=== PATIENT | female | born 1960 | race Caucasian/White ===

== ENCOUNTER 2017-02-16 12:52 | Inpatient (IN) ==
[2017-02-16] MEDS ORDERED: NALOXONE 0.4 MG/ML VIAL ONE (12:57)
[2017-02-16] MEDS ORDERED: FLUMAZENIL 0.5 MG/5 ML VIAL IV ONE (12:57)
[2017-02-16] MEDS ORDERED: NALOXONE 0.4 MG/ML VIAL IV STA (13:06)
[2017-02-16] MEDS ORDERED: FLUMAZENIL 1 MG/10 ML VIAL IV ONE (13:07)
--- NOTE | 2017-02-16 13:09 | Emergency Department Note ---
Arrival - Arrival Chief Complaint: Overdose ED Nursing Triage Note: pt got 60 methodone pills filled on 02/13/17 and today only has 21 left. pt was normal one hour lpta per son. Mode of Arrival: Stretcher Limitations: Altered Mental Status Source: EMS Time Seen by Provider: 02/16/17 13:02 - History of Present Illness HPI Narrative: This 56-year-old white female presents being found by the family with shallow respirations and poorly responsive. EMS arrived and gave the patient 2 Amps of Narcan with significant improvement in respiration although she is still quite stuporous. The patient does take methadone on a regular basis and could have taken as many as 30 [40 mg] methadone tablets by bottle count in the last 72 hrs. Currently she is responsive to noxious stimuli. No other history is available. She does have a prior history of overdosage. Onset (ago): hour(s) (Patient presents approximate 1 hour post onset of symptoms ) Allergies/Adverse Reactions: Allergies Allergy/AdvReac Type Severity Reaction Status Date / Time ketorolac [From Toradol] Allergy RASH Verified 11/13/15 21:28 morphine Allergy Vomiting Verified 09/27/16 04:10 Sulfa (Sulfonamide Allergy RASH Verified 11/13/15 21:28 Antibiotics) Home Medications: Home Medications Medication Instructions Recorded Confirmed Type Citalopram [CeleXA] 40 mg PO BEDTIME #30 tablet 11/13/15 12/07/16 Rx amLODIPine [Norvasc] 10 mg PO DAILY 11/13/15 12/07/16 History metFORMIN [Glucophage] 500 mg PO BID W/MEALS 11/13/15 12/07/16 History Atorvastatin [Lipitor] 10 mg PO DAILY 05/31/16 12/07/16 History HYDROcodone/ACETAMIN 7.5-325 1 tablet PO Q6H #14 tablet 09/27/16 12/07/16 Rx [[place] 7.5-325] Omeprazole [Prilosec] 20 mg PO BID #60 capsule 09/27/16 12/07/16 Rx Ondansetron Odt Tab [Zofran Odt] 4 mg PO Q6H #15 tablet 09/27/16 12/07/16 Rx HydrOXYzine PAMOATE CAP [Vistaril 50 mg PO Q4H PRN 10/06/16 12/07/16 History Cap] QUEtiapine [SEROquel] 100 mg PO BID 10/06/16 12/07/16 History Review of System - Review of System ROS unobtainable: due to mental status Medical,Surgical,& Family Hx - Medical History Cardio: History of: Hypertension Psychological: History of: Anxiety Disorders, Bipolar Disorder, Depression, Psychiatric/Substance Abuse Tx Neurology: History of: Neurological Problems (chronic pain) Endocrine: History of: Diabetes Mellitus (NIDDM) Genitourinary: No history of: Bladder Problem, Kidney Stones Gastrointestinal: History of: GERD Musculoskeletal: History of: Degenerative Disk Disease, Musculoskeletal Problems (MUTLIPLE SCLEROSIS) Hematology: No history of: Blood Transfusion Reaction Other: No history of: Anesthesia Reactions, Cancer - Surgical History Cardiac Surgeries: Patient Denies: Cardiac Catheterization HEENT Surgeries: Surgical HX of: Tonsilectomy & Adenoidectomy Abdominal Surgeries: Surgical HX of: Appendectomy, Cholecystectomy, Colonoscopy , EGD Reproductive Surgeries: Surgical HX of;: Hysterectomy Orthopedic Surgeries: Patient denies;: Orthopedic Surgery - Family History Family History: Reports;: Family Diabetes, Family Heart Disease, Family Hypertension - Social History Smoking Status: Current every day smoker Frequency of Alcohol Use: Unknown Type of Drug Use: Unknown Exam Physical Examination: GENERAL: Stuporous obese white female. HEENT: Normocephalic. No trauma. Moist mucous membranes. EOMI. PERRLA. ENT NML NECK: Supple. No adenopathy. No JVD CARDIAC: Regular. No murmurs. Heart rate 120 CHEST: Clear to auscultation. No respiratory distress. O2 sat 94% ABDOMEN: Soft. Nontender. Active bowel sounds. EXTREMITIES: No trauma. Normal ROM. No pedal edema. SKIN: No diaphoresis. No rash. NEURO: Stuporous but responds with movement of all 4 extremities to noxious stimuli Vital Signs: Vital Signs Temperature 97.0 F L 02/16/17 13:01 Pulse Rate 86 02/16/17 13:01 Respiratory Rate 26 H 02/16/17 14:09 Blood Pressure 128/76 02/16/17 13:01 O2 Sat by Pulse Oximetry 95 02/16/17 13:01 Course Course Narrative: My urine toxicology no evidence of opiate overdose but instead crystal meth. As related to us by the , the missing pills of methadone were on the floor where they still are when she spilled the bottle earlier in the day. Because of progressive hypoxia and diminished respiratory drive the patient was intubated and given ventilatory support. - Reevaluation(s) Reevaluation #1: Discussed with the obvious need for hospitalization given her situation clinically - Consultations Consultation #1: Discussed with the hospitalist service who will admit for further evaluation treatment. Procedures - Intubation sedative: Etomidate Mg Given: 30 paralytic: Succinylcholine Mg Given: 100 Laryngoscope: Fang Assist Device Used: fiber optic device ET Tube Size: 7.5 ET Tube Uncuffed: No Tube Secured Depth (cm): 21 Tube Secured Location: lips Tube Placement Confirmation: visualized tube passing through cords, equal breath sounds bilaterally, confirmation detector color change Patient Tolerated Procedure: well Intubation Complications: none Results - Labs CBC & BMP: 02/16/17 13:18 02/16/17 13:18 Labs: I reviewed the laboratory and noted the grossly normal serologies however likewise noted was the absence of opiates on toxicology but the presence of crystal meth. - Impressions EKG: Sinus rhythm with normal ME interval and prolonged QT interval. Nonspecific ST changes. No acute injury pattern noted. - Diagnostic Findings Procedure: Chest x-ray: image reviewed by me, report reviewed by me (Chest clear with ET tube in good position.), CT: image reviewed by me, report reviewed by me (Head: No acute changes.) Disposition Clinical Impression: Methamphetamine overdose, Respiratory failure Case discussed with: patient's family Disposition: Still a Patient Condition: Guarded Time of Disposition: 14:28
[2017-02-16] MEDS ORDERED: ALBUTEROL NEB SOLN 5 MG/ML 20 ML/BOTTLE CONT NEB STA (13:12)
[2017-02-16] MEDS ORDERED: PROPOFOL 1,000 MG/100 ML BOTTLE IV ONE ×2 (13:21→17:03)
[2017-02-16] MEDS ORDERED: ETOMIDATE 20 MG/10 ML VIAL IV ONE (13:22)
[2017-02-16] MEDS ORDERED: SUCCINYLCHOLINE 200 MG/10 ML VIAL ONE (13:22)
[2017-02-16 13:31] LABS: Basophils % 0.3 % (0.0-0.8); Eosinophils # 0.1 10*3/uL (0.0-0.87); Eosinophils % 1.1 % (0.00-10.9); Hematocrit 35.3 VOL% (35.7-47.0); Hemoglobin 11.3 GM/DL (12.0-16.0); Immature Granulocytes Absolute 0.11 #; Lymphocytes # 2.6 10*3/uL (1.4-4.0); Lymphocytes % 22.5 % (21.3-54.2); Mean Corpuscular Hemoglobin 32 PG (27-34); Mean Corpuscular Volume 100.6 FL (87-102); Mean Platelet Volume 10.1 FL (9.6-12.0); Monocytes # 1.3 10*3/uL (0.11-0.8); Monocytes % 11.7 % (1.7-12.7); Neutrophils # 7.2 10*3/uL (1.4-7.4); Neutrophils % 63.4 % (38.7-73.9); Platelet Count 169 T/CUMM (130-400); Red Blood Count 3.51 MC/CUMM (3.8-5.5); Red Cell Distribution Width 13.1 % (9.3-17.3); White Blood Count 11.3 T/CUMM (4-12)
[2017-02-16 13:36] LABS: Apearance,Urine Slightly Hazy (Clear); Bacteria,Urine Occasional /HPF (Few); Bilirubin,Urine Negative (Negative); Blood, Urine Negative (Negative); Glucose,Urine (UA) Negative (Negative); Hyaline Casts,Urine 17 /LPF (0-3); Ketones,Urine Negative (Negative); Mucus,Urine Occasional /LPF (Occasional); Nitrite,Urine Negative (Negative); Protein,Urine 30 MG/DL; RBC,Urine <1 /HPF (0-4); Squamous Epithelial Cell,Urine Occasional /HPF (0-10); Urine Color Yellow (Yellow); Urine Specific Gravity 1.008 (1.001-1.035); Urine Urobilinogen < 2.0 EU/DL (0.2-1.0); WBC,Urine 2 /HPF (0-6)
[2017-02-16 13:39] LABS: INR 1.1; PT Patient Result 11.5 SECS; Partial Thromboplastin Time 23.1 SECS (0-40)
[2017-02-16 13:44] LABS: Barbiturates Screen,Urine Negative (Negative); Benzodiazepines Screen,Urine Negative (Negative); Cannabinoid Screen,Urine Negative (Negative); Opiate Screen,Urine Negative (Negative); Phencyclidine Screen,Urine Negative (Negative)
[2017-02-16 13:48] LABS: Ammonia 29 UMOL/L (11-32)
[2017-02-16 13:53] LABS: Alanine Aminotransferase 58 U/L (13-56); Albumin 3.5 G/DL (3.4-5.0); Alkaline Phosphatase 52 U/L (45-117); Aspartate Amino Transferase 138 U/L (0-37); Blood Urea Nitrogen 21 MG/DL (7-18); Calcium 8.3 MG/DL (8.5-10.1); Glucose 186 MG/DL (74-106); Osmolality,Calculated 286.4 MOS/KG (273-304); Sodium 140 MMOL/L (136-145); Total Protein 6.8 G/DL (6.4-8.3)
[2017-02-16] MEDS ORDERED: MIDAZOLAM 10 MG/2 ML VIAL ONE (13:57)
[2017-02-16] MEDS ORDERED: SUCCINYLCHOLINE 200 MG/10 ML VIAL IV STA (14:00)
[2017-02-16] MEDS ORDERED: ETOMIDATE 20 MG/10 ML VIAL IV STA (14:00)
[2017-02-16] MEDS ORDERED: MIDAZOLAM 10 MG/2 ML VIAL IV STA (14:01)
[2017-02-16] MEDS ORDERED: SODIUM CHLORIDE 0.9% 1,000 ML IV STA ×2 (14:01→14:22)
--- NOTE | 2017-02-16 14:01 | CT Report ---
Referring physician: Bethel Luke Exam: CT brain without contrast Date: 02/16/2017 Comparison: None Reason: Alteration of consciousness Technique: Axial images of the head were obtained without the use of contrast. Total DLP was 1081.1 mGy*cm. Findings: No hydrocephalus or midline shift is present. There is no evidence of an acute infarction, recent intracranial hemorrhage or abnormal mass effect. The osseous structures appear intact. The mastoid air cells and visualized paranasal sinuses are clear. Impression: No acute intracranial abnormality is identified. The CT exam was performed using one or more of the following dose reduction techniques: Automated exposure control and adjustment of the mA and/or kV according to patient size. PROCEDURE INTERPRETED AT [facility] DEPARTMENT OF RADIOLOGY Final Report Signed by: Dr. Yany Castrejon
--- NOTE | 2017-02-16 14:02 | XRay Report ---
Portable chest Date: 02/16/2017 Clinical history: Alteration of consciousness Comparison: 10/11/2016 Technique: Portable AP sitting chest Findings: The heart is borderline in size. The endotracheal tube projects with the tip just above the level of the clavicles. Nasogastric tube seen entering the stomach. Minimal atelectasis at the lung bases. Stable mediastinum with degenerative changes. Impression: The endotracheal tube and nasogastric tube are in satisfactory position. Minimal atelectasis at the lung bases. PROCEDURE INTERPRETED AT [facility] DEPARTMENT OF RADIOLOGY Final Report Signed by: Dr. Yany Castrejon
[2017-02-16 14:15] LABS: ABG HCO3 20.3 MMOL/L (20-26); ABG Oxygen Saturation 96.8 % (95-100); ABG PCO2 58.3 MM HG (35-48); ABG PH 7.216 (7.35-7.45); ABG TCO2 21.8 MMOL/L (23-27); Allen Test Positive; Pt O2 Delivery Device Ventilator
--- NOTE | 2017-02-16 14:15 | EKG Report ---
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
[2017-02-16] MEDS: PROPOFOL 1,000 MG/100 ML BOTTLE IV SCH ×2 (14:17→23:31)
[2017-02-16] MEDS ORDERED: PROPOFOL 1,000 MG/100 ML BOTTLE IV SCH (14:30)
[2017-02-16] MEDS ORDERED: ONDANSETRON 4 MG/2 ML VIAL IV PRN (14:47)
[2017-02-16] MEDS ORDERED: PROMETHAZINE 25 MG TABLET PO PRN (14:47)
[2017-02-16] MEDS ORDERED: PANTOPRAZOLE 40 MG TABLET PO SCH (15:00)
--- NOTE | 2017-02-16 15:15 | Hospitalist History & Physical ---
Assessment and Plan - Time spent with patient Time spent with patient: Less than 30 minutes (1) Overdose, drug Status: Acute Assessment and plan: 56-year-old white female now sedated on the vent due to methamphetamine drug overdose. We will be holding all of her medicines and support her until she wakes up. She will be given IV fluids and will have an NG tube to low wall suction. Garcia has been placed for I&O. Anxiety and depression--we will hold all of her medicines for now. And as she awakens we will add these back. Dr. Segundo is her pain doctor so he may end up being consulted at some point. Hypertension--we are holding her medicines for right now. We will restart these when blood pressure start to rise. Have discussed all these findings with Dr. Marquez. Further recommendations to follow Current Visit: Yes (2) Hypertension Status: Acute Current Visit: Yes (3) Anxiety and depression Status: Acute Current Visit: Yes History of Present Illness Chief complaint: Overdose History of present illness: 56-year-old white female with history of hypertension, chronic pain on methadone , depression and anxiety brought into the ED by ambulance unresponsive. She is sedated on the vent. Patient's is in the room and he states her son found her down lying on the couch not breathing and unresponsive. Her son started CPR and called an ambulance. Her works in [place] and he drove up here soon as he got the call from his son. states she is a pain patient of Dr. Segundo and she sees Dr. Ernesto Clarke as her primary care doctor. He states they started her on methadone about a month ago and he feels like she has not been the same since then. He states she has been lethargic and kind of out of it and depressed. He last spoke with her on Sunday and she seemed to be getting worse. Her drug screen is showing positive for methamphetamines and the states that she has not taken those in a really long time. Hospitalist has been asked to admit patient. Home Medications Medication Instructions Recorded Confirmed Type Citalopram [CeleXA] 40 mg PO BEDTIME #30 tablet 11/13/15 12/07/16 Rx amLODIPine [Norvasc] 10 mg PO DAILY 11/13/15 12/07/16 History metFORMIN [Glucophage] 500 mg PO BID W/MEALS 11/13/15 12/07/16 History Atorvastatin [Lipitor] 10 mg PO DAILY 05/31/16 12/07/16 History HYDROcodone/ACETAMIN 7.5-325 1 tablet PO Q6H #14 tablet 09/27/16 12/07/16 Rx [[place] 7.5-325] Omeprazole [Prilosec] 20 mg PO BID #60 capsule 09/27/16 12/07/16 Rx Ondansetron Odt Tab [Zofran Odt] 4 mg PO Q6H #15 tablet 09/27/16 12/07/16 Rx HydrOXYzine PAMOATE CAP [Vistaril 50 mg PO Q4H PRN 10/06/16 12/07/16 History Cap] QUEtiapine [SEROquel] 100 mg PO BID 10/06/16 12/07/16 History Allergies Allergy/AdvReac Type Severity Reaction Status Date / Time ketorolac [From Toradol] Allergy RASH Verified 11/13/15 21:28 morphine Allergy Vomiting Verified 09/27/16 04:10 Sulfa (Sulfonamide Allergy RASH Verified 11/13/15 21:28 Antibiotics) Medical,Surgical,& Family Hx - Medical History Cardio: History of: Hypertension Psychological: History of: Anxiety Disorders, Bipolar Disorder, Depression, Psychiatric/Substance Abuse Tx Neurology: History of: Neurological Problems (chronic pain) Endocrine: History of: Diabetes Mellitus (NIDDM) Genitourinary: No history of: Bladder Problem, Kidney Stones Gastrointestinal: History of: GERD Musculoskeletal: History of: Degenerative Disk Disease, Musculoskeletal Problems (MUTLIPLE SCLEROSIS) Hematology: No history of: Blood Transfusion Reaction Other: No history of: Anesthesia Reactions, Cancer - Surgical History Cardiac Surgeries: Patient Denies: Cardiac Catheterization HEENT Surgeries: Surgical HX of: Tonsilectomy & Adenoidectomy Abdominal Surgeries: Surgical HX of: Appendectomy, Cholecystectomy, Colonoscopy , EGD Reproductive Surgeries: Surgical HX of;: Hysterectomy Orthopedic Surgeries: Patient denies;: Orthopedic Surgery - Family History Family History: Reports;: Family Diabetes, Family Heart Disease, Family Hypertension - Social History Smoking Status: Current every day smoker Frequency of Alcohol Use: Unknown Type of Drug Use: Unknown ROS unobtainable: due to endotracheal tube Exam - Constitutional Vitals: Period Temp Pulse Resp BP Sys/Aguilar Pulse Ox Last 24 Hr 97.0 F-97.0 F 86-86 26-26 128-128/76-76 95 Exam: 56-year-old white female, sedated on the vent is present Constitutional System: No distress. No tremulousness. Head: Normocephalic, atraumatic. Ears, Nose and Throat System: No evidence of Otitis or Mastoiditis. No epistaxis or discharge Eyes System: Pupils equal, round, and reactive. Extraocular muscles intact. Neck: Supple, without adenopathy, No jugular venous distention. No thyromegaly, neck mass, or prior surgery apparent. Respiratory System: Chest clear to auscultation. Cardiovascular System: Heart with regular rate and rhythm. No murmur. GI System: Abdomen soft,. Normo active bowel sounds present. Musculoskeletal System: limbs with no pedal edema. Full distal pulses. Neurological System: No discernable sensory deficit. No aphasia Psychiatric System: Conversation is rational Results - Labs CBC & BMP: 02/16/17 13:18 02/16/17 13:18 Lab Results: I have reviewed the past 24 hour labs - EKG EKG results: sinus rhythm - Diagnostic Findings Procedure: Chest x-ray: report reviewed by me (ET tube and NG tube in place), CT : report reviewed by me (CT the head negative)
[2017-02-16] MEDS ORDERED: GLUCAGON 1 MG VIAL IM PRN (17:32)
[2017-02-16] MEDS: SODIUM CHLORIDE 0.9% 1,000 ML IV SCH (18:13)
[2017-02-16] MEDS: ENOXAPARIN 40 MG/0.4 ML SYRINGE SUBCUT SCH (18:19)
[2017-02-16] MEDS: FAMOTIDINE 20 MG/2 ML VIAL IV SCH (18:19)
[2017-02-16] MEDS: INSULIN LISPRO 100 UNIT/ML SUBCUT SCH (18:32)
[2017-02-16 20:36] LABS: ABG Base Excess -4.2 MMOL/L (-2.5-2.5); ABG HCO3 20.9 MMOL/L (20-26); ABG Oxygen Saturation 96.8 % (95-100); ABG PCO2 47.6 MM HG (35-48); ABG PH 7.286 (7.35-7.45); ABG PO2 88.9 MM HG (80-95); ABG TCO2 20.8 MMOL/L (23-27); Allen Test Positive; Pt O2 Delivery Device Ventilator
[2017-02-17] MEDS: SODIUM CHLORIDE 0.9% 1,000 ML IV SCH ×4 (00:01→16:25)
[2017-02-17] MEDS: INSULIN LISPRO 100 UNIT/ML SUBCUT SCH ×4 (01:32→17:51)
[2017-02-17] MEDS: DEXTROSE 50% 25 GM/50 ML VIAL IV PRN ×2 (02:18→05:49)
[2017-02-17 03:44] LABS: Allen Test Positive; Pt O2 Delivery Device Ventilator
[2017-02-17 03:45] LABS: ABG Base Excess -1.5 MMOL/L (-2.5-2.5); ABG HCO3 22.1 MMOL/L (20-26); ABG Oxygen Saturation 98.5 % (95-100); ABG PCO2 33.5 MM HG (35-48); ABG PH 7.437 (7.35-7.45); ABG PO2 153.2 MM HG (80-95); ABG TCO2 23.1 MMOL/L (23-27)
[2017-02-17] MEDS: PROPOFOL 1,000 MG/100 ML BOTTLE IV SCH ×3 (04:31→17:50)
[2017-02-17 05:33] LABS: Albumin 2.8 G/DL (3.4-5.0); Bilirubin,Total 0.9 MG/DL (0.2-1.0); Calcium 7.6 MG/DL (8.5-10.1); Magnesium 1.8 MG/DL (1.8-2.4); Potassium 3.6 MMOL/L (3.5-5.1); Total Protein 6.2 G/DL (6.4-8.3)
[2017-02-17] MEDS: PHENYLEPHRINE DRIP 40 MG/250 ML PREMIX IV SCH (05:45)
[2017-02-17] MEDS: FAMOTIDINE 20 MG/2 ML VIAL IV SCH ×2 (05:52→17:53)
[2017-02-17 06:40] LABS: Basophils % 0.3 % (0.0-0.8); Eosinophils # 0.1 10*3/uL (0.0-0.87); Eosinophils % 1.9 % (0.00-10.9); Hematocrit 31.3 VOL% (35.7-47.0); Hemoglobin 10.6 GM/DL (12.0-16.0); Immature Granulocytes % 0.6 %; Immature Granulocytes Absolute 0.04 #; Lymphocytes # 2.8 10*3/uL (1.4-4.0); Lymphocytes % 38.6 % (21.3-54.2); Mean Corpuscular HGB Conc 33.9 GM/DL (32-36); Mean Corpuscular Hemoglobin 33 PG (27-34); Mean Platelet Volume 10.2 FL (9.6-12.0); Monocytes # 0.8 10*3/uL (0.11-0.8); Monocytes % 11.2 % (1.7-12.7); Neutrophils # 3.4 10*3/uL (1.4-7.4); Neutrophils % 47.4 % (38.7-73.9); Platelet Count 155 T/CUMM (130-400); Red Blood Count 3.26 MC/CUMM (3.8-5.5); White Blood Count 7.2 T/CUMM (4-12)
[2017-02-17] MEDS ORDERED: GLUCAGON 1 MG VIAL IM PRN (07:54)
[2017-02-17] MEDS ORDERED: DEXTROSE 50% 25 GM/50 ML VIAL IV PRN (07:54)
--- NOTE | 2017-02-17 07:59 | Hospitalist Progress Note ---
Assessment and Plan (1) Acute metabolic encephalopathy Status: Acute Assessment and plan: The patient is admitted to the hospital with polypharmacy. The patient is toxic metabolic encephalopathy due to medications. The patient has been stabilized in the intensive care unit we will continue mechanical ventilation. We will repeat today. I am going to restart Seroquel today. We will put on Duragesic patch to reduce the effects of narcotic withdrawal. Dr. Segundo will see the patient. Current Visit: Yes (2) Respiratory failure with hypoxia and hypercapnia Status: Acute Current Visit: Yes Qualifiers: Chronicity: acute Qualified Code(s): J96.01 - Acute respiratory failure with hypoxia; J96.02 - Acute respiratory failure with hypercapnia (3) Overdose, drug Status: Acute Current Visit: Yes Qualifiers: Encounter type: initial encounter Injury intent: accidental or unintentional Qualified Code(s): T50.901A - Poisoning by unspecified drugs, medicaments and biological substances, accidental (unintentional), initial encounter (4) Hypertension Status: Acute Current Visit: Yes (5) Anxiety and depression Status: Acute Current Visit: Yes Hospitalist: Subjective Interval history: The patient is sedated and mechanically ventilated. Hemodynamics are stable and the patient is making urine. I am going to add Duragesic patch today to reduce the risk of narcotic withdrawal. I am going to start the patient on tube feedings. Exam - Constitutional Vitals: Period Temp Pulse Resp BP Sys/Aguilar Pulse Ox Last 24 Hr 97.0 F-99.0 F 65-75 14-18 75-159/40-101 95-100 Exam: Constitutional System: No distress. No tremulousness. The patient is orally intubated and mechanically ventilated. She is sedated with Diprivan Head: Normocephalic, atraumatic. Ears, Nose and Throat System: No evidence of Otitis or Mastoiditis. No epistaxis or discharge Eyes System: Pupils equal, round, and reactive. Extraocular muscles intact. Neck: Supple, without adenopathy, No jugular venous distention. No thyromegaly , neck mass, or prior surgery apparent. Respiratory System: Chest clear to auscultation. Cardiovascular System: Heart with regular rate and rhythm. No murmur. GI System: Abdomen soft, nontender. Normo active bowel sounds present. Musculoskeletal System: limbs with no pedal edema. Full distal pulses. Results - Labs CBC & BMP: 02/17/17 06:33 02/17/17 04:29 Lab Results: I have reviewed the past 24 hour labs
[2017-02-17] MEDS: QUEtiapine 100 MG TABLET PER TUBE SCH ×2 (09:04→22:37)
[2017-02-17] MEDS: LEVOFLOXACIN INJ 500 MG in PREMIX 1 EACH IV SCH (09:04)
[2017-02-17] MEDS: fentaNYL 50 MCG/HR PATCH TRANSDERM SCH (09:14)
--- NOTE | 2017-02-17 10:29 | XRay Report ---
Portable chest. Indication: Shortness of breath. Comparison: February 16, 2017. The heart is borderline enlarged. The film was obtained in expiration. Endotracheal tube and nasogastric tube are in satisfactory position. The pulmonary vasculature is normal. Atelectasis, mild in severity, has developed at the left lung base. The osseous structures are stable. Impression: Expiratory chest. Development of mild left basilar atelectasis. PROCEDURE INTERPRETED AT [facility] DEPARTMENT OF RADIOLOGY Final Report Signed by: Dr. Mindy Moulton
[2017-02-17] MEDS: HYDROmorphone 2 MG/1 ML VIAL IV PRN (14:06)
[2017-02-17] MEDS: ALBUTEROL/IPRATROPIUM 3 ML NEB RESP TX SCH ×2 (14:18→19:28)
--- NOTE | 2017-02-17 15:14 | Pain Management Consult Note ---
Assessment and Plan (1) Overdose, drug Status: Acute Assessment and plan: I agree with the using the Duragesic patch to prevent opioid withdrawal. We should try to slowly wean off the ventilator as tolerated. I will follow along with you and look out for any signs of opiate withdrawal. Current Visit: Yes Qualifiers: Encounter type: initial encounter Injury intent: accidental or unintentional Qualified Code(s): T50.901A - Poisoning by unspecified drugs, medicaments and biological substances, accidental (unintentional), initial encounter History of Present Illness Chief complaint: respiratory failure History of present illness: Ms. Roberson is a 56 year old female Patient admitted with change in mental status and respiratory failure after reportedly methamphetamine and methadone overdose. Patient is responding to noxious stimuli and is sedated on propofol. Patient is not following commands at this time. I agree with the placement of the Duragesic patch 50 g an hour to prevent any opiate withdrawal Home Medications Medication Instructions Recorded Confirmed Type Citalopram [CeleXA] 40 mg PO BEDTIME #30 tablet 11/13/15 02/17/17 Rx amLODIPine [Norvasc] 10 mg PO DAILY 11/13/15 02/17/17 History metFORMIN [Glucophage] 500 mg PO BID W/MEALS 11/13/15 02/17/17 History Atorvastatin [Lipitor] 10 mg PO DAILY 05/31/16 02/17/17 History HYDROcodone/ACETAMIN 7.5-325 1 tablet PO Q6H #14 tablet 09/27/16 02/17/17 Rx [[place] 7.5-325] Omeprazole [Prilosec] 20 mg PO BID #60 capsule 09/27/16 02/17/17 Rx Ondansetron Odt Tab [Zofran Odt] 4 mg PO Q6H #15 tablet 09/27/16 02/17/17 Rx HydrOXYzine PAMOATE CAP [Vistaril 50 mg PO Q4H PRN 10/06/16 02/17/17 History Cap] QUEtiapine [SEROquel] 200 mg PO BID 10/06/16 02/17/17 History Lisinopril 5 mg PO BEDTIME 02/16/17 02/17/17 History Methadone [(None)] 10 mg PO Q12HR 02/16/17 02/17/17 History Tizanidine HCl [Zanaflex] 4 mg PO BEDTIME 02/16/17 02/17/17 History Allergies Allergy/AdvReac Type Severity Reaction Status Date / Time ketorolac [From Toradol] Allergy RASH Verified 11/13/15 21:28 morphine Allergy Vomiting Verified 09/27/16 04:10 Sulfa (Sulfonamide Allergy RASH Verified 11/13/15 21:28 Antibiotics) Medical,Surgical,& Family Hx - Medical History Cardio: History of: Hypertension Psychological: History of: Anxiety Disorders, Bipolar Disorder, Depression, Psychiatric/Substance Abuse Tx Neurology: History of: Neurological Problems (chronic pain) Endocrine: History of: Diabetes Mellitus (NIDDM) Genitourinary: No history of: Bladder Problem, Kidney Stones Gastrointestinal: History of: GERD Musculoskeletal: History of: Degenerative Disk Disease, Musculoskeletal Problems (MUTLIPLE SCLEROSIS) Hematology: No history of: Blood Transfusion Reaction Other: No history of: Anesthesia Reactions, Cancer - Surgical History Cardiac Surgeries: Patient Denies: Cardiac Catheterization HEENT Surgeries: Surgical HX of: Tonsilectomy & Adenoidectomy Abdominal Surgeries: Surgical HX of: Appendectomy, Cholecystectomy, Colonoscopy , EGD Reproductive Surgeries: Surgical HX of;: Hysterectomy Orthopedic Surgeries: Patient denies;: Orthopedic Surgery - Family History Family History: Reports;: Family Diabetes, Family Heart Disease, Family Hypertension - Social History Smoking Status: Current every day smoker Frequency of Alcohol Use: Unknown Type of Drug Use: Unknown ROS unobtainable: due to endotracheal tube Exam - Constitutional Vitals: Period Temp Pulse Resp BP Sys/Aguilar Pulse Ox Last 24 Hr 97.0 F-99.0 F 64-75 14-26 75-194/40-128 95-100 General appearance: no acute distress - Head Head exam: Present: normal inspection - Eye Eye exam: Present: EOMI Pupils: Present: GERMAINE, normal accommodation - ENT ENT exam: Present: normal exam Ear exam: Present: other Mouth exam: Present: normal external inspection - Neck Neck exam: Present: normal inspection - Respiratory Respiratory exam: Present: decreased breath sounds - Cardiovascular Cardiovascular exam: Present: RRR - Extremities Exam Extremities exam: Present: normal inspection - Neurological Exam Neurological exam: Present: other - Skin Skin exam: Present: normal color Results - Labs CBC & BMP: 02/17/17 06:33 02/17/17 04:29 Lab Results: I have reviewed the past 24 hour labs
[2017-02-17] MEDS ORDERED: cloNIDine 0.3 MG/24 HR PATCH TRANSDERM SCH (15:30)
[2017-02-17] MEDS: ENOXAPARIN 40 MG/0.4 ML SYRINGE SUBCUT SCH (16:18)
[2017-02-17] MEDS ORDERED: hydrALAZINE 20 MG/1 ML VIAL ONE (22:29)
[2017-02-17] MEDS: hydrALAZINE 20 MG/1 ML VIAL IV PRN (22:38)
[2017-02-18] MEDS: PHENYLEPHRINE DRIP 40 MG/250 ML PREMIX IV SCH ×2 (00:44→21:49)
[2017-02-18] MEDS: INSULIN LISPRO 100 UNIT/ML SUBCUT SCH ×4 (01:09→18:39)
[2017-02-18] MEDS: ALBUTEROL/IPRATROPIUM 3 ML NEB RESP TX SCH ×4 (01:30→19:45)
[2017-02-18] MEDS: PROPOFOL 1,000 MG/100 ML BOTTLE IV SCH ×2 (03:31→14:55)
[2017-02-18 04:54] LABS: Basophils % 0.4 % (0.0-0.8); Eosinophils % 0.7 % (0.00-10.9); Hematocrit 30.5 VOL% (35.7-47.0); Hemoglobin 10.4 GM/DL (12.0-16.0); Immature Granulocytes % 0.4 %; Immature Granulocytes Absolute 0.02 #; Lymphocytes # 1.7 10*3/uL (1.4-4.0); Lymphocytes % 31.1 % (21.3-54.2); Mean Corpuscular HGB Conc 34.1 GM/DL (32-36); Mean Corpuscular Hemoglobin 32 PG (27-34); Mean Corpuscular Volume 94.1 FL (87-102); Mean Platelet Volume 10.6 FL (9.6-12.0); Monocytes # 0.7 10*3/uL (0.11-0.8); Monocytes % 12.8 % (1.7-12.7); Neutrophils % 54.6 % (38.7-73.9); Platelet Count 166 T/CUMM (130-400); Red Blood Count 3.24 MC/CUMM (3.8-5.5); White Blood Count 5.6 T/CUMM (4-12)
[2017-02-18 04:59] LABS: ABG Base Excess -0.2 MMOL/L (-2.5-2.5); ABG HCO3 24.3 MMOL/L (20-26); ABG Oxygen Saturation 99.3 % (95-100); ABG PCO2 34.4 MM HG (35-48); ABG PH 7.441 (7.35-7.45); Pt O2 Delivery Device Ventilator
[2017-02-18 05:24] LABS: Calcium 7.8 MG/DL (8.5-10.1); Magnesium 2.1 MG/DL (1.8-2.4); Osmolality,Calculated 288.7 MOS/KG (273-304); Potassium 3.9 MMOL/L (3.5-5.1)
[2017-02-18] MEDS: SODIUM CHLORIDE 0.9% 1,000 ML IV SCH ×2 (06:21→18:37)
[2017-02-18] MEDS: FAMOTIDINE 20 MG/2 ML VIAL IV SCH ×2 (06:21→18:39)
[2017-02-18] MEDS: HYDROmorphone 2 MG/1 ML VIAL IV PRN ×3 (07:12→14:53)
[2017-02-18] MEDS: LEVOFLOXACIN INJ 500 MG in PREMIX 1 EACH IV SCH (08:58)
[2017-02-18] MEDS: QUEtiapine 100 MG TABLET PER TUBE SCH ×2 (08:58→21:50)
--- NOTE | 2017-02-18 09:13 | XRay Report ---
Portable chest. Indication: Ventilated patient. Respiratory distress. Comparison: February 19, 2017. The heart is enlarged. There is uncoiling of the thoracic aorta. Mild atelectasis present in the left lung base. Small left pleural effusion suspected. Endotracheal tube and nasogastric tube remain in satisfactory position. Impression: Persistent left basilar atelectasis and small left pleural effusion. PROCEDURE INTERPRETED AT [facility] DEPARTMENT OF RADIOLOGY Final Report Signed by: Dr. Mindy Moulton
--- NOTE | 2017-02-18 09:22 | Hospitalist Progress Note ---
Assessment and Plan (1) Acute metabolic encephalopathy Status: Acute Assessment and plan: The patient is admitted to the hospital with polypharmacy overdose. The patient is toxic metabolic encephalopathy due to medications. The patient has been stabilized in the intensive care unit we will continue mechanical ventilation. I am going to discontinue clonidine today on account of sinus pauses. I am going to substitute Norvasc down the NG tube to control blood pressure. I am going to r reduced dose of Seroquel today on account of the QT interval elongation. We will continue Duragesic patch to reduce the effects of narcotic withdrawal. I am coordinating pain control with Dr. Miller. Current Visit: Yes (2) Respiratory failure with hypoxia and hypercapnia Status: Acute Current Visit: Yes Qualifiers: Chronicity: acute Qualified Code(s): J96.01 - Acute respiratory failure with hypoxia; J96.02 - Acute respiratory failure with hypercapnia (3) Overdose, drug Status: Acute Current Visit: Yes Qualifiers: Encounter type: initial encounter Injury intent: accidental or unintentional Qualified Code(s): T50.901A - Poisoning by unspecified drugs, medicaments and biological substances, accidental (unintentional), initial encounter (4) Hypertension Status: Acute Current Visit: Yes (5) Anxiety and depression Status: Acute Current Visit: Yes Hospitalist: Subjective Interval history: The patient has developed sinus pauses when coughing or turning from side to side; she remains on the ventilator. The patient is tolerating tube feedings. Exam - Constitutional Vitals: Period Temp Pulse Resp BP Sys/Aguilar Pulse Ox Last 24 Hr 97.6 F-98.2 F 55-79 14-26 131-194/69-128 97-100 Exam: Constitutional System: No distress. No tremulousness. The patient is orally intubated and mechanically ventilated. She is sedated with Diprivan Head: Normocephalic, atraumatic. Ears, Nose and Throat System: No evidence of Otitis or Mastoiditis. No epistaxis or discharge Eyes System: Pupils equal, round, and reactive. Extraocular muscles intact. Neck: Supple, without adenopathy, No jugular venous distention. No thyromegaly , neck mass, or prior surgery apparent. Respiratory System: Chest clear to auscultation. Cardiovascular System: Heart with regular rate and rhythm. No murmur. GI System: Abdomen soft, nontender. Normo active bowel sounds present. Musculoskeletal System: limbs with no pedal edema. Full distal pulses. Results - Labs CBC & BMP: 02/18/17 04:31 02/18/17 04:31 Lab Results: I have reviewed the past 24 hour labs
[2017-02-18] MEDS: amLODIPine 10 MG TABLET PER TUBE SCH (11:48)
[2017-02-18] MEDS: hydrALAZINE 20 MG/1 ML VIAL IV PRN (13:35)
[2017-02-18] MEDS: ENOXAPARIN 40 MG/0.4 ML SYRINGE SUBCUT SCH (14:54)
[2017-02-19] MEDS: ALBUTEROL/IPRATROPIUM 3 ML NEB RESP TX SCH ×4 (01:05→18:24)
[2017-02-19] MEDS: INSULIN LISPRO 100 UNIT/ML SUBCUT SCH ×5 (02:37→23:27)
[2017-02-19 03:33] LABS: Allen Test Positive; Pt O2 Delivery Device Ventilator
[2017-02-19 03:34] LABS: ABG Base Excess 1.3 MMOL/L (-2.5-2.5); ABG HCO3 25.6 MMOL/L (20-26); ABG Oxygen Saturation 99.6 % (95-100); ABG PCO2 36.7 MM HG (35-48); ABG PH 7.444 (7.35-7.45); ABG TCO2 22.4 MMOL/L (23-27)
[2017-02-19] MEDS: HYDROmorphone 2 MG/1 ML VIAL IV PRN (04:20)
[2017-02-19 05:45] LABS: Basophils % 0.2 % (0.0-0.8); Eosinophils # 0.1 10*3/uL (0.0-0.87); Eosinophils % 1.5 % (0.00-10.9); Immature Granulocytes % 0.3 %; Immature Granulocytes Absolute 0.02 #; Lymphocytes # 1.8 10*3/uL (1.4-4.0); Lymphocytes % 27.2 % (21.3-54.2); Mean Corpuscular HGB Conc 33.3 GM/DL (32-36); Mean Corpuscular Hemoglobin 32 PG (27-34); Mean Corpuscular Volume 96.5 FL (87-102); Mean Platelet Volume 11.1 FL (9.6-12.0); Monocytes # 0.8 10*3/uL (0.11-0.8); Neutrophils # 3.9 10*3/uL (1.4-7.4); Neutrophils % 58.8 % (38.7-73.9); Platelet Count 158 T/CUMM (130-400); Red Blood Count 3.42 MC/CUMM (3.8-5.5); Red Cell Distribution Width 13.2 % (9.3-17.3); White Blood Count 6.6 T/CUMM (4-12)
[2017-02-19 06:16] LABS: Calcium 7.7 MG/DL (8.5-10.1); Magnesium 2.2 MG/DL (1.8-2.4); Osmolality,Calculated 290.6 MOS/KG (273-304); Potassium 3.6 MMOL/L (3.5-5.1); Troponin I Only 0.17 NG/ML (0.00-0.045)
[2017-02-19] MEDS: FAMOTIDINE 20 MG/2 ML VIAL IV SCH ×2 (06:20→17:42)
--- NOTE | 2017-02-19 06:43 | Pain Management Progress Note ---
Assessment and Plan (1) Overdose, drug Status: Acute Assessment and plan: I agree with the using the Duragesic patch to prevent opioid withdrawal. We should try to slowly wean off the ventilator as tolerated. I will follow along with you and look out for any signs of opiate withdrawal. 02/19 continue current plan of care Current Visit: Yes Qualifiers: Encounter type: initial encounter Injury intent: accidental or unintentional Qualified Code(s): T50.901A - Poisoning by unspecified drugs, medicaments and biological substances, accidental (unintentional), initial encounter Pain - Subjective Interval history: pain seems adequately controlled and no signs of withdrawl noted Exam - Constitutional Vitals: Period Temp Pulse Resp BP Sys/Aguilar Pulse Ox Last 24 Hr 97.6 F-98.3 F 51-69 15-22 132-197/71-103 97-100 General appearance: no acute distress - Head Head exam: Present: normal inspection - Eye Eye exam: Present: EOMI Pupils: Present: GERMAINE - ENT ENT exam: Present: normal exam Ear exam: Present: intact Mouth exam: Present: normal external inspection - Neck Neck exam: Present: normal inspection - Respiratory Respiratory exam: Present: clear to auscultation bilaterally - Cardiovascular Cardiovascular exam: Present: RRR - GI/Abdominal GI/Abdominal exam: Present: normal bowel sounds - Extremities Exam Extremities exam: Present: normal inspection - Back Exam Back exam: Present: normal inspection - Neurological Exam Speech: Present: abnormal - Skin Skin exam: Present: normal color Results - Labs CBC & BMP: 02/19/17 04:47 02/19/17 04:47 Lab Results: I have reviewed the past 24 hour labs
--- NOTE | 2017-02-19 07:20 | XRay Report ---
XR chest 1V portable Indication: Intubated. Chest one view: Comparison yesterday. Endotracheal tube, ET tube, borderline cardiomegaly and bibasilar opacities are unchanged. No new infiltrates are shown. Impression: No change. PROCEDURE INTERPRETED AT [facility] DEPARTMENT OF RADIOLOGY Final Report Signed by: Won Colbert M.D.
[2017-02-19] MEDS: PROPOFOL 1,000 MG/100 ML BOTTLE IV SCH (07:25)
[2017-02-19] MEDS: hydrALAZINE 20 MG/1 ML VIAL IV PRN (07:50)
[2017-02-19] MEDS: SODIUM CHLORIDE 0.9% 1,000 ML IV SCH ×3 (07:50→21:25)
[2017-02-19] MEDS: LEVOFLOXACIN INJ 500 MG in PREMIX 1 EACH IV SCH (07:52)
[2017-02-19] MEDS: amLODIPine 10 MG TABLET PER TUBE SCH (08:50)
[2017-02-19] MEDS: QUEtiapine 100 MG TABLET PER TUBE SCH ×2 (08:50→20:36)
--- NOTE | 2017-02-19 10:19 | Hospitalist Progress Note ---
Assessment and Plan (1) Overdose, drug Status: Acute Current Visit: Yes Qualifiers: Encounter type: initial encounter Injury intent: accidental or unintentional Qualified Code(s): T50.901A - Poisoning by unspecified drugs, medicaments and biological substances, accidental (unintentional), initial encounter (2) Hypertension Status: Acute Current Visit: Yes (3) Anxiety and depression Status: Acute Current Visit: Yes (4) Respiratory failure with hypoxia and hypercapnia Status: Acute Current Visit: Yes Qualifiers: Chronicity: acute Qualified Code(s): J96.01 - Acute respiratory failure with hypoxia; J96.02 - Acute respiratory failure with hypercapnia (5) Acute metabolic encephalopathy Status: Acute Current Visit: Yes Hospitalist: Subjective Interval history: No acute events overnight. Will consult pulmonary for vent management. Tolerating tube feeds. Exam - Constitutional Vitals: Period Temp Pulse Resp BP Sys/Aguilar Pulse Ox Last 24 Hr 97.6 F-99.3 F 51-74 14-22 132-197/71-115 97-100 General appearance: over weight - Head Head exam: Present: normocephalic, atraumatic - Eye Eye exam: Present: EOMI - ENT ENT exam: Present: normal exam - Neck Neck exam: Present: normal inspection - Respiratory Respiratory exam: Present: clear to auscultation bilaterally. Absent: wheezes - Cardiovascular Cardiovascular exam: Present: regular rate and rhythm - GI/Abdominal GI/Abdominal exam: Present: normal bowel sounds, soft. Absent: tenderness, rebound - Extremities Exam Extremities exam: Present: normal inspection - Back Exam Back exam: Present: normal inspection - Neurological Exam Neurological exam: Present: other (intubated and sedated) - Psychiatric Psychiatric exam: Present: normal affect, normal mood - Skin Skin exam: Present: warm, intact Results - Labs CBC & BMP: 02/19/17 04:47 02/19/17 04:47
--- NOTE | 2017-02-19 10:53 | Pulmonology Consult Note ---
Assessment and Plan (1) Chronic pain Status: Acute Assessment and plan: Need to watch for withdrawal from methadone. Currently on patch and as needed IV Dilaudid Current Visit: Yes (2) Bipolar disorder Status: Acute Assessment and plan: Patient is on Seroquel. Was on Celexa prior to admission. Seroquel should be enough to control her combativeness so that we can wean her. Current Visit: Yes (3) Overdose, drug Status: Acute Assessment and plan: Unclear exactly what all she took. Reportedly had prescription for methadone but her urine is negative for opioids. She did have amphetamines in her urine. Current Visit: Yes Qualifiers: Encounter type: initial encounter Injury intent: accidental or unintentional Qualified Code(s): T50.901A - Poisoning by unspecified drugs, medicaments and biological substances, accidental (unintentional), initial encounter (4) Respiratory failure with hypoxia and hypercapnia Status: Acute Assessment and plan: ABGs look good currently. Hopefully we can wean her off the ventilator if she will stay calm off propofol. Current Visit: Yes Qualifiers: Chronicity: acute Qualified Code(s): J96.01 - Acute respiratory failure with hypoxia; J96.02 - Acute respiratory failure with hypercapnia (5) Acute metabolic encephalopathy Status: Acute Assessment and plan: Unable to assess mental status with her on the propofol at present. Current Visit: Yes History of Present Illness Chief complaint: Medication overdose with respiratory failure History of present illness: Ms. Roberson is a 56 year old female who has chronic anxiety and bipolar disorder. Also chronic pain problems. She was found unconscious by her and had CPR done 3 days ago. She has been on the ventilator now over the weekend. She apparently does wake up and become very active when her sedation is held out. Her urine showed only amphetamines however she was known to be on methadone. She does get her blood pressure up and gets anxious when sedation is held. May be having some withdrawal from the methadone. She does have a fentanyl patch on and is getting as needed Dilaudid. She is a regular smoker but there is no known history of lung disease. Home Medications Medication Instructions Recorded Confirmed Type Citalopram [CeleXA] 40 mg PO BEDTIME #30 tablet 11/13/15 02/17/17 Rx amLODIPine [Norvasc] 10 mg PO DAILY 11/13/15 02/17/17 History metFORMIN [Glucophage] 500 mg PO BID W/MEALS 11/13/15 02/17/17 History Atorvastatin [Lipitor] 10 mg PO DAILY 05/31/16 02/17/17 History HYDROcodone/ACETAMIN 7.5-325 1 tablet PO Q6H #14 tablet 09/27/16 02/17/17 Rx [[place] 7.5-325] Omeprazole [Prilosec] 20 mg PO BID #60 capsule 09/27/16 02/17/17 Rx Ondansetron Odt Tab [Zofran Odt] 4 mg PO Q6H #15 tablet 09/27/16 02/17/17 Rx HydrOXYzine PAMOATE CAP [Vistaril 50 mg PO Q4H PRN 10/06/16 02/17/17 History Cap] QUEtiapine [SEROquel] 200 mg PO BID 10/06/16 02/17/17 History Lisinopril 5 mg PO BEDTIME 02/16/17 02/17/17 History Methadone [(None)] 10 mg PO Q12HR 02/16/17 02/17/17 History Tizanidine HCl [Zanaflex] 4 mg PO BEDTIME 02/16/17 02/17/17 History Allergies Allergy/AdvReac Type Severity Reaction Status Date / Time ketorolac [From Toradol] Allergy RASH Verified 11/13/15 21:28 morphine Allergy Vomiting Verified 09/27/16 04:10 Sulfa (Sulfonamide Allergy RASH Verified 11/13/15 21:28 Antibiotics) ROS unobtainable: due to endotracheal tube Exam (Pulmonay) H&P - Constitutional Vitals: Period Temp Pulse Resp BP Sys/Aguilar Pulse Ox Last 24 Hr 97.6 F-99.3 F 51-74 14-22 132-197/71-115 97-100 Exam: Vital signs are normal. Patient is drowsy I can get her to move her eyes a little bit on calling her name. Pupils do react. Orotracheal tube in place. Neck is supple no bruits. Chest sounds clear equal breath sounds. Heart normal rate and rhythm no murmurs. Abdomen soft bowel sounds present, no masses. Extremities no clubbing cyanosis edema. Calves nontender. Medical,Surgical,& Family Hx - Medical History Cardio: History of: Hypertension Psychological: History of: Anxiety Disorders, Bipolar Disorder, Depression, Psychiatric/Substance Abuse Tx Neurology: History of: Neurological Problems (chronic pain) Endocrine: History of: Diabetes Mellitus (NIDDM) Genitourinary: No history of: Bladder Problem, Kidney Stones Gastrointestinal: History of: GERD Musculoskeletal: History of: Degenerative Disk Disease, Musculoskeletal Problems (MUTLIPLE SCLEROSIS) Hematology: No history of: Blood Transfusion Reaction Other: No history of: Anesthesia Reactions, Cancer - Surgical History Cardiac Surgeries: Patient Denies: Cardiac Catheterization HEENT Surgeries: Surgical HX of: Tonsilectomy & Adenoidectomy Abdominal Surgeries: Surgical HX of: Appendectomy, Cholecystectomy, Colonoscopy , EGD Reproductive Surgeries: Surgical HX of;: Hysterectomy Orthopedic Surgeries: Patient denies;: Orthopedic Surgery - Family History Family History: Reports;: Family Diabetes, Family Heart Disease, Family Hypertension - Social History Smoking Status: Current every day smoker Frequency of Alcohol Use: Unknown Type of Drug Use: Unknown Results - Labs CBC & BMP: 02/19/17 04:47 02/19/17 04:47 Lab Results: I have reviewed the past 24 hour labs - Diagnostic Findings Procedure: Chest x-ray: image reviewed by me (ET in good position. Minimal bibasilar hazy infiltrates. This is new since x-ray on admission. Probably not a full inspiration)
[2017-02-19 11:48] LABS: ABG HCO3 26.2 MMOL/L (20-26); ABG PCO2 43.5 MM HG (35-48); ABG PH 7.403 (7.35-7.45); ABG TCO2 23.7 MMOL/L (23-27)
[2017-02-19 11:49] LABS: Allen Test Positive; Pt O2 Delivery Device Ventilator
[2017-02-19 13:51] LABS: ABG Base Excess 3.6 MMOL/L (-2.5-2.5); ABG HCO3 27.5 MMOL/L (20-26); ABG PCO2 42.1 MM HG (35-48); ABG PH 7.434 (7.35-7.45); ABG PO2 67.9 MM HG (80-95); ABG TCO2 24.8 MMOL/L (23-27); Allen Test Positive
[2017-02-19] MEDS: ENOXAPARIN 40 MG/0.4 ML SYRINGE SUBCUT SCH (15:13)
[2017-02-19] MEDS: PHENYLEPHRINE DRIP 40 MG/250 ML PREMIX IV SCH (20:31)
[2017-02-20] MEDS: hydrALAZINE 20 MG/1 ML VIAL IV PRN ×4 (00:52→20:17)
[2017-02-20] MEDS: ALBUTEROL/IPRATROPIUM 3 ML NEB RESP TX SCH ×4 (01:01→19:10)
[2017-02-20 03:15] LABS: Basophils % 0.2 % (0.0-0.8); Eosinophils # 0.1 10*3/uL (0.0-0.87); Eosinophils % 1.1 % (0.00-10.9); Hematocrit 41.3 VOL% (35.7-47.0); Hemoglobin 13.9 GM/DL (12.0-16.0); Immature Granulocytes % 0.7 %; Immature Granulocytes Absolute 0.08 #; Lymphocytes # 2.4 10*3/uL (1.4-4.0); Lymphocytes % 19.1 % (21.3-54.2); Mean Corpuscular HGB Conc 33.7 GM/DL (32-36); Mean Corpuscular Hemoglobin 31 PG (27-34); Mean Corpuscular Volume 93.4 FL (87-102); Mean Platelet Volume 10.5 FL (9.6-12.0); Monocytes # 1.1 10*3/uL (0.11-0.8); Monocytes % 8.5 % (1.7-12.7); Neutrophils # 8.7 10*3/uL (1.4-7.4); Neutrophils % 70.4 % (38.7-73.9); Platelet Count 261 T/CUMM (130-400); Red Blood Count 4.42 MC/CUMM (3.8-5.5); Red Cell Distribution Width 12.9 % (9.3-17.3); White Blood Count 12.3 T/CUMM (4-12)
[2017-02-20 03:47] LABS: Calcium 8.9 MG/DL (8.5-10.1); Magnesium 2.2 MG/DL (1.8-2.4); Osmolality,Calculated 283.1 MOS/KG (273-304); Potassium 3.4 MMOL/L (3.5-5.1)
[2017-02-20] MEDS: FAMOTIDINE 20 MG/2 ML VIAL IV SCH ×2 (05:13→18:00)
[2017-02-20] MEDS: INSULIN LISPRO 100 UNIT/ML SUBCUT SCH ×3 (06:10→18:00)
[2017-02-20] MEDS: SODIUM CHLORIDE 0.9% 1,000 ML IV SCH (06:10)
--- NOTE | 2017-02-20 06:10 | Pain Management Progress Note ---
Assessment and Plan (1) Overdose, drug Status: Acute Assessment and plan: I agree with the using the Duragesic patch to prevent opioid withdrawal. We should try to slowly wean off the ventilator as tolerated. I will follow along with you and look out for any signs of opiate withdrawal. 02/19 continue current plan of care 02/20 recommend [facility] for [facility] Current Visit: Yes Qualifiers: Encounter type: initial encounter Injury intent: accidental or unintentional Qualified Code(s): T50.901A - Poisoning by unspecified drugs, medicaments and biological substances, accidental (unintentional), initial encounter Pain - Subjective Interval history: Patient has been slightly confused overnight nursing staff feels it could be due to the use of Seroquel. Patient is agreeable to going to a rehab facility and she prefers [facility] Exam - Constitutional Vitals: Period Temp Pulse Resp BP Sys/Aguilar Pulse Ox Last 24 Hr 97.4 F-99.2 F 18-73 14-25 125-192/74-110 92-100 General appearance: no acute distress - Head Head exam: Present: normal inspection - Eye Eye exam: Present: EOMI Pupils: Present: GERMAINE - ENT ENT exam: Present: normal exam Ear exam: Present: intact Mouth exam: Present: normal external inspection - Neck Neck exam: Present: normal inspection - Respiratory Respiratory exam: Present: clear to auscultation bilaterally - Cardiovascular Cardiovascular exam: Present: RRR - GI/Abdominal GI/Abdominal exam: Present: normal bowel sounds - Extremities Exam Extremities exam: Present: normal inspection - Back Exam Back exam: Present: vertebral tenderness - Neurological Exam Neurological exam: Present: alert, oriented X3 - Skin Skin exam: Present: normal color Results - Labs CBC & BMP: 02/20/17 02:33 02/20/17 02:33 Lab Results: I have reviewed the past 24 hour labs
--- NOTE | 2017-02-20 06:36 | Pulmonology Progress Note ---
Pulmonary - PN: Subj Interval history: This 56-year-old white female was extubated yesterday. She had acute respiratory failure related to multidrug overdose. She is having some confusion and what sounds like hallucinations. She was on Seroquel prior to admission and continued on the Seroquel. Her blood pressure is elevated. Oxygen saturation is 95% on 3 L. Do think she is having some sort of withdrawal. Exam (Progress Note) - Constitutional Vitals: Period Temp Pulse Resp BP Sys/Aguilar Pulse Ox Last 24 Hr 97.4 F-99.2 F 18-73 14-25 125-192/74-110 92-100 Exam: Patient's alert but confused. Vital signs are normal except blood pressure 180/ 110. Pupils react to light. Throat is clear. Neck supple no bruits. Chest shows a few basilar rhonchi. Equal breath sounds. Heart normal rate rhythm no murmurs. Abdomen soft no masses. Bowel sounds present. Extremities no clubbing cyanosis edema. Calves nontender. Results - Labs CBC & BMP: 02/20/17 02:33 02/20/17 02:33 Lab Results: I have reviewed the past 24 hour labs Assessment and Plan (1) Chronic pain Status: Acute Assessment and plan: Need to watch for withdrawal from methadone. Currently on patch and as needed IV Dilaudid 02/20/2017 defer to pain management. Current Visit: Yes (2) Bipolar disorder Status: Acute Assessment and plan: Patient is on Seroquel. Was on Celexa prior to admission. Seroquel should be enough to control her combativeness so that we can wean her. 02/20/2017 continuing Seroquel. She was on 200 mg twice a day prior to admission. Need psychiatric follow-up Current Visit: Yes (3) Overdose, drug Status: Acute Assessment and plan: Unclear exactly what all she took. Reportedly had prescription for methadone but her urine is negative for opioids. She did have amphetamines in her urine. 02/20/2017 patient more alert and has done well since extubation. Current Visit: Yes Qualifiers: Encounter type: initial encounter Injury intent: accidental or unintentional Qualified Code(s): T50.901A - Poisoning by unspecified drugs, medicaments and biological substances, accidental (unintentional), initial encounter (4) Respiratory failure with hypoxia and hypercapnia Status: Acute Assessment and plan: ABGs look good currently. Hopefully we can wean her off the ventilator if she will stay calm off propofol. 02/20/2017 still requiring some nasal oxygen. Was able to be extubated without problems yesterday Current Visit: Yes Qualifiers: Chronicity: acute Qualified Code(s): J96.01 - Acute respiratory failure with hypoxia; J96.02 - Acute respiratory failure with hypercapnia (5) Acute metabolic encephalopathy Status: Acute Assessment and plan: Unable to assess mental status with her on the propofol at present. 02/20/2017 still some confusion and apparent hallucinations. Current Visit: Yes
[2017-02-20] MEDS: LISINOPRIL 5 MG TABLET PO SCH (08:04)
[2017-02-20] MEDS: QUEtiapine 100 MG TABLET PER TUBE SCH ×2 (08:04→20:58)
[2017-02-20] MEDS: amLODIPine 10 MG TABLET PER TUBE SCH (08:04)
[2017-02-20] MEDS: fentaNYL 50 MCG/HR PATCH TRANSDERM SCH (08:04)
[2017-02-20] MEDS: LEVOFLOXACIN INJ 500 MG in PREMIX 1 EACH IV SCH (08:04)
--- NOTE | 2017-02-20 12:58 | Hospitalist Progress Note ---
Assessment and Plan (1) Overdose, drug Status: Acute Current Visit: Yes Qualifiers: Encounter type: initial encounter Injury intent: accidental or unintentional Qualified Code(s): T50.901A - Poisoning by unspecified drugs, medicaments and biological substances, accidental (unintentional), initial encounter (2) Hypertension Status: Acute Current Visit: Yes (3) Anxiety and depression Status: Acute Current Visit: Yes (4) Respiratory failure with hypoxia and hypercapnia Status: Acute Current Visit: Yes Qualifiers: Chronicity: acute Qualified Code(s): J96.01 - Acute respiratory failure with hypoxia; J96.02 - Acute respiratory failure with hypercapnia (5) Acute metabolic encephalopathy Status: Acute Current Visit: Yes Hospitalist: Subjective Interval history: Patient extubated yesterday. Doing well from that standpoint. Drowsy on interview with [facility]. They will have to reevaluate her later. Her blood pressure is elevated, started on lisinopril this morning. Exam - Constitutional Vitals: Period Temp Pulse Resp BP Sys/Aguilar Pulse Ox Last 24 Hr 97.4 F-99.2 F 18-110 15-37 125-199/74-110 92-99 General appearance: over weight - Head Head exam: Present: normocephalic, atraumatic - Eye Eye exam: Present: EOMI Pupils: Present: GERMAINE - ENT ENT exam: Present: normal exam - Neck Neck exam: Present: normal inspection. Absent: tenderness - Respiratory Respiratory exam: Present: clear to auscultation bilaterally. Absent: wheezes - Cardiovascular Cardiovascular exam: Present: regular rate and rhythm - GI/Abdominal GI/Abdominal exam: Present: normal bowel sounds, soft. Absent: tenderness, rebound - Extremities Exam Extremities exam: Present: normal inspection - Back Exam Back exam: Present: normal inspection - Neurological Exam Neurological exam: Present: alert (mumbling, not answering questions appropriately) - Psychiatric Psychiatric exam: Present: normal affect, normal mood - Skin Skin exam: Present: warm, intact Results - Labs CBC & BMP: 02/20/17 02:33 02/20/17 02:33
[2017-02-20] MEDS: ENOXAPARIN 40 MG/0.4 ML SYRINGE SUBCUT SCH (16:54)
[2017-02-20] MEDS: PHENYLEPHRINE DRIP 40 MG/250 ML PREMIX IV SCH (20:53)
[2017-02-21] MEDS: INSULIN LISPRO 100 UNIT/ML SUBCUT SCH ×4 (01:09→18:43)
[2017-02-21] MEDS: hydrALAZINE 20 MG/1 ML VIAL IV PRN ×2 (01:17→07:40)
[2017-02-21 05:54] LABS: Basophils % 0.3 % (0.0-0.8); Eosinophils % 0.3 % (0.00-10.9); Hematocrit 45.4 VOL% (35.7-47.0); Hemoglobin 15.7 GM/DL (12.0-16.0); Immature Granulocytes % 0.5 %; Immature Granulocytes Absolute 0.07 #; Lymphocytes # 2.9 10*3/uL (1.4-4.0); Lymphocytes % 18.5 % (21.3-54.2); Mean Corpuscular HGB Conc 34.6 GM/DL (32-36); Mean Corpuscular Hemoglobin 32 PG (27-34); Mean Corpuscular Volume 92.1 FL (87-102); Mean Platelet Volume 10.9 FL (9.6-12.0); Monocytes # 1.6 10*3/uL (0.11-0.8); Monocytes % 10.6 % (1.7-12.7); Neutrophils # 10.9 10*3/uL (1.4-7.4); Neutrophils % 69.8 % (38.7-73.9); Platelet Count 368 T/CUMM (130-400); Red Blood Count 4.93 MC/CUMM (3.8-5.5); Red Cell Distribution Width 13.6 % (9.3-17.3); White Blood Count 15.5 T/CUMM (4-12)
[2017-02-21] MEDS: FAMOTIDINE 20 MG/2 ML VIAL IV SCH ×2 (06:16→16:50)
[2017-02-21 06:35] LABS: Calcium 9.3 MG/DL (8.5-10.1); Osmolality,Calculated 291.8 MOS/KG (273-304); Potassium 2.7 MMOL/L (3.5-5.1)
[2017-02-21] MEDS: ALBUTEROL/IPRATROPIUM 3 ML NEB RESP TX SCH ×4 (07:14→20:23)
--- NOTE | 2017-02-21 07:23 | XRay Report ---
XR chest 1V portable Indication: Respiratory failure. Chest one view: Since 2 days earlier, a shunt has been extubated and the NG tube removed. Heart size remains normal. Mediastinal contour is unremarkable. Lungs remain hypoinflated but overall, are better aerated. There is still interstitial prominence of the lungs diffusely. Impression: Improved aeration of the lungs following extubation and NG tube removal. Persistent ulnar hypoinflation. PROCEDURE INTERPRETED AT [facility] DEPARTMENT OF RADIOLOGY Final Report Signed by: Won Colbert M.D.
[2017-02-21] MEDS ORDERED: POTASSIUM CHLORIDE 20 MEQ/15 ML UDCUP PER TUBE PRN (08:32)
[2017-02-21] MEDS ORDERED: INFLUENZA VIRUS VACCINE 0.5 ML SYRINGE IM ONE (09:00)
--- NOTE | 2017-02-21 09:28 | Pulmonology Progress Note ---
Pulmonary - PN: Subj Interval history: This 56-year-old white female was extubated yesterday. She had acute respiratory failure related to multidrug overdose. She is having some confusion and what sounds like hallucinations. She was on Seroquel prior to admission and continued on the Seroquel. Her blood pressure is elevated. Oxygen saturation is 95% on 3 L. Do think she is having some sort of withdrawal. 02/21/2017 patient has done well since extubation yesterday. Oxygen saturation in the mid 90s on room air. Lungs sound clear. Stable from pulmonary standpoint. Defer to primary service as follows psychiatric follow-up for her overdose whether intentional or accidental. Will sign off from pulmonary standpoint. Exam (Progress Note) - Constitutional Vitals: Period Temp Pulse Resp BP Sys/Aguilar Pulse Ox Last 24 Hr 97.4 F-99.4 F 75-110 18-37 145-209/81-111 92-99 Exam: Patient's alert and seems oriented.. Vital signs are normal except blood pressure 180/110. Pupils react to light. Throat is clear. Neck supple no bruits. Chest shows a few basilar rhonchi. Equal breath sounds. Heart normal rate rhythm no murmurs. Abdomen soft no masses. Bowel sounds present. Extremities no clubbing cyanosis edema. Calves nontender. Results - Labs CBC & BMP: 02/21/17 04:45 02/21/17 04:45 Lab Results: I have reviewed the past 24 hour labs - Diagnostic Findings Procedure: Chest x-ray: image reviewed by me (Improved. Minimal atelectasis.) Assessment and Plan (1) Chronic pain Status: Acute Assessment and plan: Need to watch for withdrawal from methadone. Currently on patch and as needed IV Dilaudid 02/20/2017 defer to pain management. 02/21/2017 again defer to pain management. Current Visit: Yes (2) Bipolar disorder Status: Acute Assessment and plan: Patient is on Seroquel. Was on Celexa prior to admission. Seroquel should be enough to control her combativeness so that we can wean her. 02/20/2017 continuing Seroquel. She was on 200 mg twice a day prior to admission. Need psychiatric follow-up 02/21/2017 defer to primary service. Need psychiatric follow-up Current Visit: Yes (3) Overdose, drug Status: Acute Assessment and plan: Unclear exactly what all she took. Reportedly had prescription for methadone but her urine is negative for opioids. She did have amphetamines in her urine. 02/20/2017 patient more alert and has done well since extubation. 02/21/2017 no signs of withdrawal at present. Current Visit: Yes Qualifiers: Encounter type: initial encounter Injury intent: accidental or unintentional Qualified Code(s): T50.901A - Poisoning by unspecified drugs, medicaments and biological substances, accidental (unintentional), initial encounter (4) Respiratory failure with hypoxia and hypercapnia Status: Acute Assessment and plan: ABGs look good currently. Hopefully we can wean her off the ventilator if she will stay calm off propofol. 02/20/2017 still requiring some nasal oxygen. Was able to be extubated without problems yesterday 02/21/2017 now on room air. Oxygen saturations mid 90s. Current Visit: Yes Qualifiers: Chronicity: acute Qualified Code(s): J96.01 - Acute respiratory failure with hypoxia; J96.02 - Acute respiratory failure with hypercapnia (5) Acute metabolic encephalopathy Status: Acute Assessment and plan: Unable to assess mental status with her on the propofol at present. 02/20/2017 still some confusion and apparent hallucinations. 02/21/2017 patient is less confused. Current Visit: Yes
[2017-02-21] MEDS: LEVOFLOXACIN INJ 500 MG in PREMIX 1 EACH IV SCH (09:47)
[2017-02-21] MEDS: amLODIPine 10 MG TABLET PER TUBE SCH (09:50)
[2017-02-21] MEDS: LISINOPRIL 5 MG TABLET PO SCH (09:50)
[2017-02-21] MEDS: QUEtiapine 100 MG TABLET PER TUBE SCH ×2 (09:50→20:43)
[2017-02-21] MEDS: POTASSIUM CHLORIDE RIDER 10 MEQ in PREMIX 1 EACH IV PRN ×5 (14:17→19:13)
[2017-02-21] MEDS: ENOXAPARIN 40 MG/0.4 ML SYRINGE SUBCUT SCH (15:36)
[2017-02-21] MEDS: HYDROmorphone 2 MG/1 ML VIAL IV PRN (15:59)
--- NOTE | 2017-02-21 16:05 | Hospitalist Progress Note ---
Assessment and Plan (1) Overdose, drug Status: Acute Current Visit: Yes Qualifiers: Encounter type: initial encounter Injury intent: accidental or unintentional Qualified Code(s): T50.901A - Poisoning by unspecified drugs, medicaments and biological substances, accidental (unintentional), initial encounter (2) Hypertension Status: Acute Current Visit: Yes (3) Anxiety and depression Status: Acute Current Visit: Yes (4) Respiratory failure with hypoxia and hypercapnia Status: Acute Current Visit: Yes Qualifiers: Chronicity: acute Qualified Code(s): J96.01 - Acute respiratory failure with hypoxia; J96.02 - Acute respiratory failure with hypercapnia (5) Acute metabolic encephalopathy Status: Acute Current Visit: Yes Hospitalist: Subjective Interval history: No acute events overnight. Patient more alert today. Oriented to self, able to tell me who her is. No signs of withdrawal currently. Attempting to get patient transferred to psychiatry. Exam - Constitutional Vitals: Period Temp Pulse Resp BP Sys/Aguilar Pulse Ox Last 24 Hr 96.0 F-99.4 F 75-112 19-23 98-209/55-111 92-99 General appearance: over weight - Head Head exam: Present: normocephalic, atraumatic - Eye Eye exam: Present: EOMI Pupils: Present: GERMAINE - ENT ENT exam: Present: normal exam - Neck Neck exam: Present: normal inspection. Absent: tenderness - Respiratory Respiratory exam: Present: clear to auscultation bilaterally. Absent: rhonchi, wheezes - Cardiovascular Cardiovascular exam: Present: regular rate and rhythm - GI/Abdominal GI/Abdominal exam: Present: normal bowel sounds, soft - Extremities Exam Extremities exam: Present: normal inspection - Back Exam Back exam: Present: normal inspection - Neurological Exam Neurological exam: Present: alert - Psychiatric Psychiatric exam: Present: normal affect, normal mood - Skin Skin exam: Present: warm, intact Results - Labs CBC & BMP: 02/21/17 04:45 02/21/17 04:45
[2017-02-21] MEDS: PHENYLEPHRINE DRIP 40 MG/250 ML PREMIX IV SCH (19:42)
[2017-02-22] MEDS: ALBUTEROL/IPRATROPIUM 3 ML NEB RESP TX SCH ×4 (00:31→21:12)
[2017-02-22] MEDS: INSULIN LISPRO 100 UNIT/ML SUBCUT SCH ×4 (02:55→19:18)
[2017-02-22 05:30] LABS: Basophils % 0.4 % (0.0-0.8); Eosinophils # 0.3 10*3/uL (0.0-0.87); Eosinophils % 2.7 % (0.00-10.9); Hematocrit 41.1 VOL% (35.7-47.0); Hemoglobin 13.9 GM/DL (12.0-16.0); Immature Granulocytes % 0.5 %; Immature Granulocytes Absolute 0.05 #; Lymphocytes % 37.4 % (21.3-54.2); Mean Corpuscular HGB Conc 33.8 GM/DL (32-36); Mean Corpuscular Hemoglobin 32 PG (27-34); Mean Corpuscular Volume 94.1 FL (87-102); Mean Platelet Volume 10.6 FL (9.6-12.0); Monocytes # 1.2 10*3/uL (0.11-0.8); Monocytes % 10.9 % (1.7-12.7); Neutrophils # 5.2 10*3/uL (1.4-7.4); Neutrophils % 48.1 % (38.7-73.9); Platelet Count 299 T/CUMM (130-400); Red Blood Count 4.37 MC/CUMM (3.8-5.5); Red Cell Distribution Width 13.6 % (9.3-17.3); White Blood Count 10.8 T/CUMM (4-12)
[2017-02-22] MEDS: FAMOTIDINE 20 MG/2 ML VIAL IV SCH ×2 (05:59→17:08)
[2017-02-22 06:06] LABS: Calcium 8.9 MG/DL (8.5-10.1); Magnesium 2.7 MG/DL (1.8-2.4); Osmolality,Calculated 305.4 MOS/KG (273-304); Potassium 3.5 MMOL/L (3.5-5.1)
[2017-02-22] MEDS: DOCUSATE SODIUM 100 MG CAPSULE PO PRN (10:14)
[2017-02-22] MEDS: LISINOPRIL 5 MG TABLET PO SCH (10:14)
[2017-02-22] MEDS: amLODIPine 10 MG TABLET PER TUBE SCH (10:14)
[2017-02-22] MEDS: QUEtiapine 100 MG TABLET PER TUBE SCH ×2 (10:17→20:27)
[2017-02-22] MEDS: LEVOFLOXACIN INJ 500 MG in PREMIX 1 EACH IV SCH (10:19)
--- NOTE | 2017-02-22 12:32 | Hospitalist Progress Note ---
Assessment and Plan (1) Overdose, drug Status: Acute Current Visit: Yes Qualifiers: Encounter type: initial encounter Injury intent: accidental or unintentional Qualified Code(s): T50.901A - Poisoning by unspecified drugs, medicaments and biological substances, accidental (unintentional), initial encounter (2) Hypertension Status: Acute Current Visit: Yes (3) Anxiety and depression Status: Acute Current Visit: Yes (4) Respiratory failure with hypoxia and hypercapnia Status: Acute Current Visit: Yes Qualifiers: Chronicity: acute Qualified Code(s): J96.01 - Acute respiratory failure with hypoxia; J96.02 - Acute respiratory failure with hypercapnia (5) Acute metabolic encephalopathy Status: Acute Current Visit: Yes Hospitalist: Subjective Interval history: No acute events overnight. Patient more coherent today, but still with some confusion. [facility] cannot evaluate patient until Sunday. [facility] will evaluate, but patient does not want to go there. Continue physical therapy. Exam - Constitutional Vitals: Period Temp Pulse Resp BP Sys/Aguilar Pulse Ox Last 24 Hr 96 F-97.4 F 79-112 18-27 112-133/64-76 91-99 General appearance: over weight - Head Head exam: Present: normocephalic, atraumatic - Eye Eye exam: Present: EOMI Pupils: Present: GERMAINE - ENT ENT exam: Present: normal exam - Neck Neck exam: Present: normal inspection. Absent: tenderness - Respiratory Respiratory exam: Present: clear to auscultation bilaterally. Absent: rhonchi, wheezes - Cardiovascular Cardiovascular exam: Present: regular rate and rhythm - GI/Abdominal GI/Abdominal exam: Present: normal bowel sounds, soft. Absent: tenderness, rebound - Extremities Exam Extremities exam: Present: normal inspection - Back Exam Back exam: Present: normal inspection - Neurological Exam Neurological exam: Present: altered - Psychiatric Psychiatric exam: Present: normal affect, normal mood - Skin Skin exam: Present: warm, intact Results - Labs CBC & BMP: 02/22/17 05:05 02/22/17 05:05
[2017-02-22] MEDS: ENOXAPARIN 40 MG/0.4 ML SYRINGE SUBCUT SCH (17:07)
[2017-02-23] MEDS: ALBUTEROL/IPRATROPIUM 3 ML NEB RESP TX SCH ×4 (01:17→21:08)
[2017-02-23] MEDS: INSULIN LISPRO 100 UNIT/ML SUBCUT SCH ×4 (02:57→19:07)
[2017-02-23] MEDS: FAMOTIDINE 20 MG/2 ML VIAL IV SCH ×2 (05:21→18:54)
--- NOTE | 2017-02-23 06:08 | Pain Management Progress Note ---
Assessment and Plan (1) Overdose, drug Status: Acute Assessment and plan: I agree with the using the Duragesic patch to prevent opioid withdrawal. We should try to slowly wean off the ventilator as tolerated. I will follow along with you and look out for any signs of opiate withdrawal. 02/19 continue current plan of care 02/20 recommend [facility] for detox 02/23 stable for discharge to home at her request Current Visit: Yes Qualifiers: Encounter type: initial encounter Injury intent: accidental or unintentional Qualified Code(s): T50.901A - Poisoning by unspecified drugs, medicaments and biological substances, accidental (unintentional), initial encounter Pain - Subjective Interval history: Patient is stable at this time no complaints of pain are reported. Patient has no signs or symptoms of intoxication or opioid withdrawal at this time. Patient has informed me that she does not want to go to detoxification treatment and will go home and follow-up with [facility] on her own Exam - Constitutional Vitals: Period Temp Pulse Resp BP Sys/Aguilar Pulse Ox Last 24 Hr 97 F-98.9 F 79-105 18-20 121-148/59-84 90-99 General appearance: no acute distress - Head Head exam: Present: normal inspection - Eye Eye exam: Present: EOMI Pupils: Present: GERMAINE - ENT ENT exam: Present: normal exam Ear exam: Present: intact Mouth exam: Present: normal external inspection - Neck Neck exam: Present: normal inspection - Respiratory Respiratory exam: Present: clear to auscultation bilaterally - Cardiovascular Cardiovascular exam: Present: RRR - GI/Abdominal GI/Abdominal exam: Present: normal bowel sounds - Extremities Exam Extremities exam: Present: normal inspection - Back Exam Back exam: Present: vertebral tenderness - Neurological Exam Neurological exam: Present: alert - Skin Skin exam: Present: normal color Results - Labs CBC & BMP: 02/22/17 05:05 02/22/17 05:05 Lab Results: I have reviewed the past 24 hour labs
[2017-02-23] MEDS: amLODIPine 10 MG TABLET PER TUBE SCH (08:50)
[2017-02-23] MEDS: QUEtiapine 100 MG TABLET PER TUBE SCH ×2 (08:50→20:21)
[2017-02-23] MEDS: LISINOPRIL 5 MG TABLET PO SCH (08:50)
[2017-02-23] MEDS: fentaNYL 50 MCG/HR PATCH TRANSDERM SCH (08:51)
--- NOTE | 2017-02-23 16:09 | Hospitalist Progress Note ---
Assessment and Plan (1) Overdose, drug Status: Acute Current Visit: Yes Qualifiers: Encounter type: initial encounter Injury intent: accidental or unintentional Qualified Code(s): T50.901A - Poisoning by unspecified drugs, medicaments and biological substances, accidental (unintentional), initial encounter (2) Hypertension Status: Acute Current Visit: Yes (3) Anxiety and depression Status: Acute Current Visit: Yes (4) Respiratory failure with hypoxia and hypercapnia Status: Acute Current Visit: Yes Qualifiers: Chronicity: acute Qualified Code(s): J96.01 - Acute respiratory failure with hypoxia; J96.02 - Acute respiratory failure with hypercapnia (5) Acute metabolic encephalopathy Status: Acute Current Visit: Yes Hospitalist: Subjective Interval history: More lucid today. Still very weak, not able to walk. [facility] evaluated, feels patient is too weak for transfer to them. Will attempt for swing bed placement. Exam - Constitutional Vitals: Period Temp Pulse Resp BP Sys/Aguilar Pulse Ox Last 24 Hr 97.1 F-98.1 F 72-103 18-28 121-148/68-84 92-99 General appearance: over weight - Head Head exam: Present: normocephalic, atraumatic - Eye Eye exam: Present: EOMI Pupils: Present: GERMAINE - ENT ENT exam: Present: normal exam - Neck Neck exam: Present: normal inspection - Respiratory Respiratory exam: Present: clear to auscultation bilaterally - Cardiovascular Cardiovascular exam: Present: regular rate and rhythm - GI/Abdominal GI/Abdominal exam: Present: normal bowel sounds, soft. Absent: tenderness, rebound - Extremities Exam Extremities exam: Present: normal inspection - Back Exam Back exam: Present: normal inspection - Neurological Exam Neurological exam: Present: alert, oriented X3 - Psychiatric Psychiatric exam: Present: normal affect, normal mood - Skin Skin exam: Present: warm, intact Results - Labs CBC & BMP: 02/22/17 05:05 02/22/17 05:05
[2017-02-23] MEDS: ENOXAPARIN 40 MG/0.4 ML SYRINGE SUBCUT SCH (18:54)
[2017-02-23] MEDS: DESITIN 4OZ/NYSTATIN 15 GRAM MIXTURE PASTE TOP SCH ×2 (18:54→20:22)
[2017-02-24] MEDS: INSULIN LISPRO 100 UNIT/ML SUBCUT SCH ×4 (01:04→18:58)
[2017-02-24] MEDS: ALBUTEROL/IPRATROPIUM 3 ML NEB RESP TX SCH ×4 (03:25→19:39)
[2017-02-24] MEDS: FAMOTIDINE 20 MG/2 ML VIAL IV SCH ×2 (06:19→18:36)
[2017-02-24] MEDS: QUEtiapine 100 MG TABLET PER TUBE SCH ×2 (10:08→21:17)
[2017-02-24] MEDS: DESITIN 4OZ/NYSTATIN 15 GRAM MIXTURE PASTE TOP SCH ×2 (10:08→21:17)
[2017-02-24] MEDS: amLODIPine 10 MG TABLET PER TUBE SCH (10:08)
[2017-02-24] MEDS: LISINOPRIL 5 MG TABLET PO SCH (10:08)
--- NOTE | 2017-02-24 12:13 | Hospitalist Progress Note ---
Assessment and Plan (1) Overdose, drug Status: Acute Current Visit: Yes Qualifiers: Encounter type: initial encounter Injury intent: accidental or unintentional Qualified Code(s): T50.901A - Poisoning by unspecified drugs, medicaments and biological substances, accidental (unintentional), initial encounter (2) Hypertension Status: Chronic Current Visit: Yes (3) Anxiety and depression Status: Chronic Current Visit: Yes (4) Respiratory failure with hypoxia and hypercapnia Status: Resolved Current Visit: Yes Qualifiers: Chronicity: acute Qualified Code(s): J96.01 - Acute respiratory failure with hypoxia; J96.02 - Acute respiratory failure with hypercapnia (5) Acute metabolic encephalopathy Status: Resolved Current Visit: Yes Hospitalist: Subjective Interval history: No acute events overnight. Patient's confusion continues to improve. No signs of drug withdrawal. Waiting on swing bed placement. Exam - Constitutional Vitals: Period Temp Pulse Resp BP Sys/Aguilar Pulse Ox Last 24 Hr 97.0 F-98.3 F 74-103 18-28 113-134/60-83 90-99 General appearance: over weight - Head Head exam: Present: normocephalic, atraumatic - Eye Eye exam: Present: EOMI Pupils: Present: GERMAINE - ENT ENT exam: Present: normal exam - Neck Neck exam: Present: normal inspection - Respiratory Respiratory exam: Present: clear to auscultation bilaterally - Cardiovascular Cardiovascular exam: Present: regular rate and rhythm - GI/Abdominal GI/Abdominal exam: Present: normal bowel sounds, soft. Absent: tenderness, rebound - Extremities Exam Extremities exam: Present: normal inspection - Back Exam Back exam: Present: normal inspection - Neurological Exam Neurological exam: Present: alert, oriented X3 - Psychiatric Psychiatric exam: Present: depressed - Skin Skin exam: Present: warm, intact Results - Labs CBC & BMP: 02/22/17 05:05 02/22/17 05:05
[2017-02-24] MEDS: ENOXAPARIN 40 MG/0.4 ML SYRINGE SUBCUT SCH (18:34)
[2017-02-25] MEDS: ALBUTEROL/IPRATROPIUM 3 ML NEB RESP TX SCH ×4 (00:48→19:05)
[2017-02-25] MEDS: INSULIN LISPRO 100 UNIT/ML SUBCUT SCH ×4 (00:49→18:02)
[2017-02-25] MEDS: FAMOTIDINE 20 MG/2 ML VIAL IV SCH ×2 (06:12→17:07)
[2017-02-25] MEDS: LISINOPRIL 5 MG TABLET PO SCH (09:52)
[2017-02-25] MEDS: QUEtiapine 100 MG TABLET PER TUBE SCH ×2 (09:52→21:01)
[2017-02-25] MEDS: DESITIN 4OZ/NYSTATIN 15 GRAM MIXTURE PASTE TOP SCH ×2 (09:52→21:01)
[2017-02-25] MEDS: amLODIPine 10 MG TABLET PER TUBE SCH (09:52)
--- NOTE | 2017-02-25 11:46 | Hospitalist Progress Note ---
Assessment and Plan (1) Overdose, drug Status: Acute Current Visit: Yes Qualifiers: Encounter type: initial encounter Injury intent: accidental or unintentional Qualified Code(s): T50.901A - Poisoning by unspecified drugs, medicaments and biological substances, accidental (unintentional), initial encounter (2) Hypertension Status: Chronic Current Visit: Yes (3) Anxiety and depression Status: Chronic Current Visit: Yes (4) Respiratory failure with hypoxia and hypercapnia Status: Resolved Current Visit: Yes Qualifiers: Chronicity: acute Qualified Code(s): J96.01 - Acute respiratory failure with hypoxia; J96.02 - Acute respiratory failure with hypercapnia (5) Acute metabolic encephalopathy Status: Resolved Current Visit: Yes Hospitalist: Subjective Interval history: No acute events overnight. is at bedside. He reports that patient's confusion improves a little everyday, but she is still no where close to her usual self. Will order CT due to slow progression. Labs in am. Exam - Constitutional Vitals: Period Temp Pulse Resp BP Sys/Aguilar Pulse Ox Last 24 Hr 97.1 F-98.1 F 83-97 18-20 114-134/66-73 92-100 General appearance: over weight - Head Head exam: Present: normocephalic, atraumatic - Eye Eye exam: Present: EOMI, nystagmus - ENT ENT exam: Present: normal exam - Neck Neck exam: Present: normal inspection - Respiratory Respiratory exam: Present: clear to auscultation bilaterally. Absent: rhonchi, wheezes - Cardiovascular Cardiovascular exam: Present: regular rate and rhythm - GI/Abdominal GI/Abdominal exam: Present: normal bowel sounds, soft. Absent: tenderness, rebound - Extremities Exam Extremities exam: Present: normal inspection - Back Exam Back exam: Present: normal inspection - Neurological Exam Neurological exam: Present: alert - Psychiatric Psychiatric exam: Present: normal affect, normal mood - Skin Skin exam: Present: warm, intact Results - Labs CBC & BMP: 02/22/17 05:05 02/22/17 05:05
--- NOTE | 2017-02-25 12:28 | CT Report ---
Exam: CT scan of brain without contrast Date: 02/25/2017 Indication: confusion Comparison: 02/16/2017 Patient's classification: Inpatient Technical: Images were obtained from the skull base to the vertex without the use of intravenous contrast. Dose reduction was performed with decreasing kv and mA and automated exposure Total DLP: 970.1 mGy*cm Findings: The brainstem, cerebellum and cerebral hemispheres are intact. The paranasal sinuses are unremarkable. The frontal sinuses are slightly hypoplastic. The right mastoid is somewhat sclerotic. The left mastoid is intact. Mastoids are otherwise unremarkable The ventricles are located in normal position without midline shift or mass effect. The globes and sella are intact. The calvarium is unremarkable. Impression: 1. No acute hemorrhage infarction or mass effect. PROCEDURE INTERPRETED AT [facility] DEPARTMENT OF RADIOLOGY Final Report Signed by: Dr. Anselmo Anders
[2017-02-25] MEDS: ENOXAPARIN 40 MG/0.4 ML SYRINGE SUBCUT SCH (17:07)
[2017-02-26] MEDS: INSULIN LISPRO 100 UNIT/ML SUBCUT SCH ×3 (00:15→13:32)
[2017-02-26] MEDS: ALBUTEROL/IPRATROPIUM 3 ML NEB RESP TX SCH ×3 (00:17→12:25)
[2017-02-26 04:49] LABS: Basophils % 0.4 % (0.0-0.8); Eosinophils # 0.2 10*3/uL (0.0-0.87); Eosinophils % 3.1 % (0.00-10.9); Hemoglobin 12.4 GM/DL (12.0-16.0); Immature Granulocytes % 0.4 %; Immature Granulocytes Absolute 0.03 #; Lymphocytes % 39.3 % (21.3-54.2); Mean Corpuscular HGB Conc 34.4 GM/DL (32-36); Mean Corpuscular Hemoglobin 32 PG (27-34); Mean Platelet Volume 10.8 FL (9.6-12.0); Monocytes # 0.8 10*3/uL (0.11-0.8); Monocytes % 10.9 % (1.7-12.7); Neutrophils # 3.6 10*3/uL (1.4-7.4); Neutrophils % 45.9 % (38.7-73.9); Platelet Count 269 T/CUMM (130-400); Red Blood Count 3.83 MC/CUMM (3.8-5.5); Red Cell Distribution Width 12.7 % (9.3-17.3); White Blood Count 7.7 T/CUMM (4-12)
[2017-02-26 05:24] LABS: Calcium 8.8 MG/DL (8.5-10.1); Magnesium 2.2 MG/DL (1.8-2.4); Osmolality,Calculated 279.4 MOS/KG (273-304); Potassium 3.6 MMOL/L (3.5-5.1)
[2017-02-26] MEDS: FAMOTIDINE 20 MG/2 ML VIAL IV SCH (05:44)
[2017-02-26] MEDS: QUEtiapine 100 MG TABLET PER TUBE SCH (08:34)
[2017-02-26] MEDS: amLODIPine 10 MG TABLET PER TUBE SCH (08:34)
[2017-02-26] MEDS: DOCUSATE SODIUM 100 MG CAPSULE PO PRN (08:34)
[2017-02-26] MEDS: LISINOPRIL 5 MG TABLET PO SCH (08:34)
[2017-02-26] MEDS: DESITIN 4OZ/NYSTATIN 15 GRAM MIXTURE PASTE TOP SCH (08:39)
--- NOTE | 2017-02-26 10:26 | Discharge Summary ---
Hospital Course - Hospital Course Hospital Course: 56-year-old white female with history of hypertension, chronic pain on methadone , depression and anxiety brought into the ED by ambulance unresponsive. She was sedated on the vent. Patient's was in the room and he stated her son found her down lying on the couch not breathing and unresponsive. Her son started CPR and called an ambulance. stated she is a pain patient of Dr. Segundo and she sees Dr. Ernesto Clarke as her primary care doctor. He stated that they started her on methadone about a month ago and he felt like she had not been the same since then. He stated she had been lethargic and kind of out of it and depressed. Her drug screen was positive for methamphetamines and the states that she has not taken those in a really long time. The patient is admitted to the hospitalist service with polypharmacy overdose. The patient was toxic metabolic encephalopathy due to medications. The patient was stabilized in the intensive care unit on mechanical ventilation. Her Seroquel was reduced and she was started on fentanly patch with discontinuation of methadone. Pulmonary was consulted for vent management, she was extubated . Pain management was consulted, who agreed with her current course. She was evaluated by [facility] who felt she was too weak physically for transfer. She has now reached maximum benefit of inpatient stay and will be discharged to [facility] for rehab. - Time spent with patient Time with patient DS: Less than 30 minutes Diagnosis - Discharge Diagnosis (1) Overdose, drug Status: Resolved (2) Hypertension Status: Chronic (3) Anxiety and depression Status: Chronic (4) Respiratory failure with hypoxia and hypercapnia Status: Resolved (5) Acute metabolic encephalopathy Status: Resolved Discharge Plan - Discharge Data Disposition: Disch/Xfer-Ip Rehab Fac Condition at Discharge: Stable Discharge Diet: advance to your usual diet Hygiene: no restrictions Weight Bearing at Discharge: weight bear as tolerated Driving: no restrictions Contact your physician if you experience:: fever over 101, Shortness of breath - Discharge Medications New QUEtiapine [SEROquel] 100 mg PER TUBE BID #30 tablet fentaNYL 50 MCG/HR PATCH [Duragesic 50 Patch] 1 patch TRANSDERM Q3DAY #10 patch Continue metFORMIN [Glucophage] 500 mg PO BID W/MEALS amLODIPine [Norvasc] 10 mg PO DAILY Atorvastatin [Lipitor] 10 mg PO DAILY Ondansetron Odt Tab [Zofran Odt] 4 mg PO Q6H #15 tablet Omeprazole [Prilosec] 20 mg PO BID #60 capsule Lisinopril 5 mg PO BEDTIME Discontinued Citalopram [CeleXA] 40 mg PO BEDTIME #30 tablet HYDROcodone/ACETAMIN 7.5-325 [[place] 7.5-325] 1 tablet PO Q6H #14 tablet HydrOXYzine PAMOATE CAP [Vistaril Cap] 50 mg PO Q4H PRN PRN Reason: Agitation QUEtiapine [SEROquel] 200 mg PO BID Tizanidine HCl [Zanaflex] 4 mg PO BEDTIME Methadone [(None)] 10 mg PO Q12HR - Follow Up or Referral - Forms/Instructions Exam - Constitutional Vitals: Period Temp Pulse Resp BP Sys/Aguilar Pulse Ox Last 24 Hr 97 F-98.9 F 54-103 18-20 124-152/66-99 94-99 General appearance: over weight - Head Head exam: Present: normocephalic, atraumatic - Eye Eye exam: Present: EOMI - ENT ENT exam: Present: normal exam - Neck Neck exam: Present: normal inspection. Absent: tenderness - Respiratory Respiratory exam: Present: clear to auscultation bilaterally. Absent: rhonchi, wheezes - Cardiovascular Cardiovascular exam: Present: regular rate and rhythm - GI/Abdominal GI/Abdominal exam: Present: normal bowel sounds, soft. Absent: tenderness, rebound - Extremities Exam Extremities exam: Present: normal inspection - Back Exam Back exam: Present: normal inspection - Neurological Exam Neurological exam: Present: alert - Psychiatric Psychiatric exam: Present: depressed - Skin Skin exam: Present: warm, intact Discharge Results Labs on day of discharge: Labs from last 24 hours 02/26/17 02/26/17 02/26/17 05:45 03:42 03:42 WBC 7.7 RBC 3.83 Hgb 12.4 Hct 36.0 MCV 94.0 MCH 32 MCHC 34.4 RDW 12.7 Plt Count 269 MPV 10.8 Neut % (Auto) 45.9 Lymph % (Auto) 39.3 [place] % (Auto) 10.9 Eos % (Auto) 3.1 Baso % (Auto) 0.4 Neut # (Auto) 3.6 Lymph # (Auto) 3.0 [place] # (Auto) 0.8 Eos # (Auto) 0.2 Baso # (Auto) 0.0 Immature Gran % 0.4 Nucleated RBC % 0.0 Immature Gran # 0.03 Nucleated RBCs # 0.00 Sodium 140 Potassium 3.6 Chloride 105 Carbon Dioxide 25 Anion Gap 13.6 BUN 10 Creatinine 0.40 L GFR Calculation 131 BUN/Creatinine Ratio 25.00 H Glucose 140 H POC Glucose 170 H Calculated Osmolality 279.4 Calcium 8.8 Magnesium 2.2 Vitamin B12 02/26/17 02/26/17 02/25/17 03:42 00:06 17:46 WBC RBC Hgb Hct MCV MCH MCHC RDW Plt Count MPV Neut % (Auto) Lymph % (Auto) [place] % (Auto) Eos % (Auto) Baso % (Auto) Neut # (Auto) Lymph # (Auto) [place] # (Auto) Eos # (Auto) Baso # (Auto) Immature Gran % Nucleated RBC % Immature Gran # Nucleated RBCs # Sodium Potassium Chloride Carbon Dioxide Anion Gap BUN Creatinine GFR Calculation BUN/Creatinine Ratio Glucose POC Glucose 172 H 191 H Calculated Osmolality Calcium Magnesium Vitamin B12 310 02/25/17 11:39 WBC RBC Hgb Hct MCV MCH MCHC RDW Plt Count MPV Neut % (Auto) Lymph % (Auto) [place] % (Auto) Eos % (Auto) Baso % (Auto) Neut # (Auto) Lymph # (Auto) [place] # (Auto) Eos # (Auto) Baso # (Auto) Immature Gran % Nucleated RBC % Immature Gran # Nucleated RBCs # Sodium Potassium Chloride Carbon Dioxide Anion Gap BUN Creatinine GFR Calculation BUN/Creatinine Ratio Glucose POC Glucose 116 H Calculated Osmolality Calcium Magnesium Vitamin B12 DS: Provider Date of admission: 02/16/17 14:48 Primary care physician: Jessica King Attending physician on admission: Eric Marquez MD Consults: 02/16/17 14:55 Consult to Pharmacy [CONS] Routine Reason for Pharmacy Consult: Adjust Meds Renal Funct 02/16/17 17:32 Consult to Physician [CONS] Routine Comment: methadone patient with metabolic encephalopathy Consulting Provider: Romi Segundo Consulting Provider Notified: Yes Person Notified: Dr. Segundo Date Notified: 02/17/17 Time Notified: 10:34 Consult Notification Comment: oZ FRYE [phone] at 0900 then again at 1000. No answer, successfully reached Dr. Segundo on his cell phone. 02/19/17 09:27 Consult to Physician [CONS] Routine Comment: vent data management consultant Provider: Bradley Grant When should Consulting Provider be notified: Now 02/20/17 07:29 Consult to Case Mgmt/Social Srvs [CONS] Routine Reason for Case Mgmt/Social Srvs: Psychiatric Management Consult Comment: Patient prefers [facility] 02/20/17 07:42 Consult to Physical Therapy [CONS] Routine Reason for Physical Therapy: Evaluate and Treat 02/21/17 08:33 Consult to Physical Therapy [CONS] Routine Reason for Physical Therapy: Weakness 02/21/17 10:49 Consult to Physical Therapy [CONS] Routine Reason for Physical Therapy: Weakness 02/22/17 07:38 Consult to Physical Therapy [CONS] Routine Reason for Physical Therapy: Weakness 02/23/17 10:34 Consult to Case Mgmt/Social Srvs [CONS] Routine Reason for Case Mgmt/Social Srvs: Swingbed/SNF/Shelter Discharging clinician: Jesus Loredo MD
[2017-02-26] MEDS ORDERED: fentaNYL 50 MCG/HR PATCH TRANSDERM SCH (12:30)
[2017-02-26 17:22] VITALS: BP 134/86
--- NOTE | 2017-03-01 07:59 | Physician Query Form ---
CLICK EDIT DOCUMENT TO SELECT QUERY ANSWER --> OK --> SIGN Mohini Schaeffer RN Clinical [employer] Worker W) [phone] (f) [phone] [email or web address]: Make your selection(s) from the choices in EACH section by typing an "x" and enter comments in the comment section. Please use your independent medical judgment in providing your response. This request does not imply that any particular answer is desired or expected. CLINICAL INDICATORS: (Providers should not edit this section) Based on documentation of serum creatinine from 1.5 on admission to 0.50. GFR from 44 to 124. Treated with NS bolus followed by infusion. Monitored with serial lab checks. Clarify which of the following most accurately represents the patient's renal status: ( x) Acute kidney injury (non-traumatic) ( ) Acute renal failure ( ) Acute renal failure with underlying Chronic Kidney Disease (CKD) - please provide stage below ( ) Acute renal failure with pathological renal lesion ( ) Acute renal failure with necrosis ( ) tubular ( ) medullary ( ) cortical ( ) CKD - please provide stage below ( ) End Stage Renal Disease ( ) Acute interstitial nephritis ( ) Hepatorenal syndrome ( ) Other, please specify: ( ) Clinically unable to determine Chronic Kidney Disease Stages Source: National Kidney Disease Foundation ( ) Stage I (eGFR > or = 90) ( ) Stage II (eGFR 60 - 89) ( ) Stage III (eGFR 30 - 59) ( ) Stage IV (eGFR 15 - 29) ( ) Stage V (eGFR < 15 or dialysis) COMMENTS: Use of terms such as suspected, likely, or probable (associated with a specific diagnosis that is being evaluated, monitored, or treated as if it exists) are acceptable and can be restated in the discharge summary if not ruled out. MTDD
== END 2017-02-26 14:30 | disposition swing bed (61) | DRG 812 ==
LOC: N.ED 12:52 → N.EDINP 14:47 → SUATTDRO 14:48 → N.ICU 16:06 → N.4E 02-20 13:48
PROVIDERS: ADMIT Internal Medicine; ATTEND Internal Medicine